=== PATIENT | male | born 1975 | race Caucasian/White ===

== ENCOUNTER 2018-04-11 06:10 | Day surgery (SDC) | payer OTHER | END 2018-04-11 16:00 | disposition home or self-care (01) | LOC: CIR.AMB 06:10 | DX: H80.81 Other otosclerosis, right ear (principal) ==

== ENCOUNTER 2020-12-16 05:50 | Day surgery (SDC) | payer OTHER | END 2020-12-16 12:20 | disposition home or self-care (01) | LOC: CIR.AMB 05:50 | PROVIDERS: ATTEND Otolaryngology Otology & Neurotology | DX: H80.02 Otosclerosis involving oval window, nonobliterative, left ear (principal); Z20.822 Contact with and (suspected) exposure to COVID-19 ==